=== PATIENT | male | born 1990 | race Caucasian/White ===

== ENCOUNTER 2018-07-27 21:47 | Emergency (ER) | payer OTHER, SELFPAY ==
[~2018-07-27] VITALS: Ht 177.8 cm; Wt 100.6 kg
[2018-07-27 21:49] VITALS: BP 168/96
[2018-07-27] MEDS ORDERED: DEXAMETHASONE 4 MG TABLET PO STA (22:22)
[2018-07-27] MEDS ORDERED: DEXAMETHASONE 4 MG TABLET ONE (22:34)
== END 2018-07-27 22:43 | disposition home or self-care (01) ==
LOC: ED 22:19
DX: J15.7 Pneumonia due to Mycoplasma pneumoniae (principal)
CPT/HCPCS: 71046; 93005; 99283

== ENCOUNTER 2021-05-17 10:09 | Emergency (ER) | payer OTHER ==
[~2021-05-17] VITALS: Ht 177.8 cm; Wt 98.6 kg
--- NOTE | 2021-05-17 10:32 | NUR ---
PT PRESENTS TO ED C/O CP GRADUALLY COMING ON SUNDAY NIGHT ON LT SIDE PRESSURE RADIATING TO LT ARM. PT REPORTS SUNDAY CP SUBSIDED BUT HE DEVELOPED DIZZINESS AND NAUSEA. PT STATES THAT EARLIER SUNDAY BEFORE CP, HE WAS LIFTING HEAVY ITEMS AT WORK "IT WAS A LONG DAY". NAD NOTED AT THIS TIME. RESPIRATIONS EVEN AND UNLABORED ON RA. PT DENIES MEDICAL HX. PT CHANGED INTO GOWN, PLACED ON ALL MONITORS. SIDE RAIL UP, CALL LIGHT IN REACH. AWAITING SWAPNA ABREU.
[2021-05-17 11:14] LABS: BASOPHILS % (AUTO) 1 % (0-1); EOSINOPHILS % (AUTO) 4 % (1-7); LYMPHOCYTES % (AUTO) 29 % (22-44); MEAN CORPUSCULAR HEMOGLOBIN 29.8 pg (27.5-34.5); MEAN CORPUSCULAR HGB CONC 34.5 g/dL (33.2-36.2); MEAN PLATELET VOLUME 8.2 fL (7.4-10.4); MONOCYTES % (AUTO) 8 % (2-9); NEUTROPHILS % (AUTO) 57 % (42-75); PLATELET COUNT 255 x10^3/uL (130-400); RED BLOOD COUNT 5.31 x10^6/uL (4.38-5.82); RED CELL DISTRIBUTION WIDTH 12.3 % (9.4-14.8)
[2021-05-17 11:23] LABS: ALBUMIN 4.2 g/dL (3.4-5.0); ANION GAP 5 mmol/L (5-15); CALCIUM 8.4 mg/dL (8.5-10.1); CHLORIDE 106 mmol/L (98-107)
[2021-05-17 11:28] LABS: CREATININE 0.85 mg/dL (0.7-1.3); TROPONIN I < 0.015 ng/mL (0.000-0.045)
[2021-05-17 11:41] VITALS: BP 139/85
== END 2021-05-17 12:01 | disposition home or self-care (01) ==
LOC: ED 10:45
DX: R07.89 Other chest pain (principal)
CPT/HCPCS: 36415; 71045; 80048; 82040; 84484; 85025; 93005; 99285